=== PATIENT | male | born 1970 | race Caucasian/White ===

== ENCOUNTER → 2022-09-11 | Outpatient (CLI) | payer BC ==
--- NOTE | 2022-09-11 11:58 | XR ---
EXAMINATION TYPE: XR chest 2V DATE OF EXAM: 09/11/2022 COMPARISON: NONE HISTORY: Polycythemia. TECHNIQUE: Frontal and lateral views of the chest are obtained. FINDINGS: There is no suspicious focal air space opacity, pleural effusion, or pneumothorax seen. T he cardiac silhouette size is mildly enlarged. The osseous structures are intact. IMPRESSION: Mild cardiomegaly without acute pulmonary process.
== END | disposition home or self-care (01) ==
LOC: RADXRYALE 11:07
PROVIDERS: ATTEND Internal Medicine Hematology & Oncology
DX: I51.7 Cardiomegaly (principal); D45 Polycythemia vera
CPT/HCPCS: 71046

== ENCOUNTER → 2023-09-07 | Outpatient (CLI) | payer BC ==
--- NOTE | 2023-09-07 09:07 | CT ---
EXAMINATION TYPE: CT sinus wo con DATE OF EXAM: 09/07/2023 COMPARISON: None HISTORY: 53-year-old male J32.0, chronic maxillary sinusitis CT DLP: 636.4 mGycm Automated exposure control for dose reduction was used. TECHNIQUE: Noncontrast axial views of the paranasal sinuses were obtained. Coronal and sagittal refor matted images were obtained from the axial views for evaluation of nasal cavity, osteomeatal complex and skull base integrity. FINDINGS: PARANASAL SINUSES: Severe mucosal thickening throughout the ethmoid air cells and moderate within the sphenoid sinuses a nd maxillary sinuses. frontal, ethmoid, maxillary and sphenoid sinuses are clear and well pneumatize d. There is no air-fluid level. Reactive mary- osteogenesis is not seen. There is no destruction of the osseous sherman of the paranasal sinuses. THE NASAL CAVITY: The osteomeatal complexes are patent. Prominent soft tissue filling the nasal cavity on both sides. Rightward nasal septal deviation. Prominent dental caries right maxillary first molar. Large periapical lucencies involving the bilater al first maxillary molars. On the right, there is some dehiscence of the anterior alveolar ridge here . No premaxillary soft tissue swelling at this time. The imaged brain and orbits are normal in appearance. Mastoid air cells and middle ear cavities are well pneumatized. Prominent cerumen left external auditory canal. Reformatted images confirm above findings. IMPRESSION: 1. Severe chronic ethmoid sinus disease and moderate within the sphenoid and maxillary sinuses. 2. Prominent soft tissue filling the nasal cavities could represent underlying nasal polyposis or pro nounced nasal mucosal thickening. 3. Rightward nasal septal deviation. 4. Prominent periapical lucencies involving the first bilateral maxillary molars with a large dental caries noted on the right. In addition, on the right, there is some dehiscence of the inferior alveol ar ridge but no inflammatory changes of the premaxillary soft tissues here at this time.
== END | disposition home or self-care (01) ==
LOC: RADCTMAIN 06:47
PROVIDERS: ATTEND Otolaryngology
DX: J32.0 Chronic maxillary sinusitis (principal); J32.2 Chronic ethmoidal sinusitis; J34.2 Deviated nasal septum; K02.9 Dental caries, unspecified; J34.89 Other specified disorders of nose and nasal sinuses
CPT/HCPCS: 70486